=== PATIENT | male | born 1950 | race Caucasian/White ===

== ENCOUNTER → 2017-07-03 07:05 | Outpatient (CLI) | payer MEDICARE, OTHER, SELFPAY ==
[2017-07-03 07:13] LABS: Microscopic, Urine URINE MICROSCOPIC (MICROSCOPIC)
--- NOTE | 2017-07-03 07:34 | XR_ITS ---
XR chest 2V HISTORY: History of dysphasia and hoarseness, previous abnormal radiograph ITS.REASON: PRE-OP ORDERING PHYSICIAN: Leland Hagen PATIENT AGE: 67 years COMPARISON: 03/05/2012 FINDINGS: Unremarkable cardiovascular structures. There is evidence of old granulomatous disease. There is mild hyperinflation with prominent anterior clear space which may be seen with COPD similar to the previous exam. No lobar consolidation or collapse. There are degenerative changes in the thoracic spine with mild wedging of T7 and T8 slightly greater T7 and unchanged at T8 compared to the previous study. IMPRESSION: 1. No acute finding. 2. Hyperinflation consistent with COPD with old granulomatous disease. 3. Mild wedging of T7 and T8 slightly greater at the T7 region compared to the previous exam.
[2017-07-03 08:12] LABS: Basophils % 0.6 % (0.1-2.0); Eosinophils # 0.1 K/mm3 (0.0-0.4); Eosinophils % 1.9 % (0.1-12.0); Hematocrit 42.3 % (42.0-52.0); Hemoglobin 14.7 g/dL (14.1-18.0); Lymphocytes # 1.5 K/mm3 (0.7-4.5); Lymphocytes % 39.7 K/mm3 (10-50); Mean Corpuscular HGB Conc 34.7 g/dL (31.8-35.4); Mean Corpuscular Hemoglobin 30.7 pg (27.0-31.2); Mean Corpuscular Volume 88.6 fl (80-94); Mean Platelet Volume 7.4 fl (7.4-10.4); Monocytes # 0.4 K/mm3 (0.1-1.0); Monocytes % 9.4 % (1.7-9.3); Neutrophils # 1.9 K/mm3 (1.8-7.8); Neutrophils % 48.4 % (37.0-80.0); Platelet Count 224 K/mm3 (142-424); Red Blood Count 4.77 M/mm3 (4.60-6.20); Red Cell Distribution Width 12.7 % (11.5-17.5); White Blood Count 3.9 K/mm3 (4.8-10.8)
[2017-07-03 09:09] LABS: Appearance,Urine CLEAR (Clear); Bilirubin,Urine Negative (Negative); Blood, Urine TRACE-L (Negative); Color,Urine YELLOW (Yellow); Glucose,Urine (UA) Negative (Negative); Ketones,Urine Negative (Negative); Leukocyte Esterase,Urine Negative (Negative); Nitrate,Urine Negative (Negative); PH,Urine 6.5 (5.0-8.5); Protein,Urine Negative (Negative); Urobilinogen,Urine 0.2 EU/dl (0.2)
[2017-07-03 09:28] LABS: Alanine Aminotransferase 28 U/L (12-78); Albumin Level 3.6 gm/dL (3.4-5.0); Albumin/Globulin Ratio 1.1 (1.1-1.8); Alkaline Phosphatase 85 U/L (46-116); Anion Gap 11.1 mEq/L (5-15); Aspartate Amino Transferase 17 U/L (15-37); Blood Urea Nitrogen 13 mg/dL (7-18); Calcium 8.5 mg/dL (8.5-10.1); Carbon Dioxide 29 mmol/L (21.0-32.0); Chloride 105 mmol/L (98-107); Creatinine,Serum 0.73 mg/dL (0.70-1.30); Estimated Glomerular Filt Rate 107 ml/min (>60); GFR (African American) 129 ML/MIN (>60); Globulin 3.3 gm/dl (1.3-3.2); Glucose 89 mg/dL (74-106); Potassium 4.1 mmoL/L (3.5-5.1); Sodium 141 mmol/L (136-145); Total Protein,Serum 6.9 gm/dL (6.4-8.2)
[2017-07-03 09:51] LABS: Bacteria,Urine Trace /lpf; Squamous Epithelial Cell,Urine Occasional #/hpf (0-5)
== END ==
PROVIDERS: PCP Internal Medicine Adolescent Medicine; Visit Provider Orthopaedic Surgery
DX: Z01.818 Encounter for other preprocedural examination (principal); M16.12 Unilateral primary osteoarthritis, left hip
CPT/HCPCS: 36415; 71046; 80053; 81001; 85025; 86900; 86901; 87081; 93005

== ENCOUNTER 2017-08-23 08:00 | Outpatient (RCR) | payer MEDICARE, OTHER, SELFPAY | END 2017-08-23 10:30 | disposition home or self-care (01) | LOC: PT 08:00 | PROVIDERS: Family Provider Internal Medicine Adolescent Medicine; PCP Internal Medicine Adolescent Medicine; Visit Provider Orthopaedic Surgery | DX: Z96.642 Presence of left artificial hip joint (principal); M25.552 Pain in left hip | CPT/HCPCS: 97010; 97110; 97116; 97164 ==

== ENCOUNTER → 2018-02-12 09:12 | Outpatient (CLI) | payer MEDICARE, OTHER, SELFPAY ==
--- NOTE | 2018-02-12 09:14 | MR_ITS ---
MR lumbar spine wo/w con, MR 3-d myelogram/MRCP HISTORY: ITS.REASON: ACUTE RT SIDED BACK PAIN Rt sided LBP. pain worse when going from sitting to standing. X1YR. Prior back surgery X12yrs ago. ORDERING PHYSICIAN: Hossein Rodriguez MD PATIENT AGE: 67 years Comparison: X-RAY 07-02-2008 TECHNIQUE: Standard multiplanar multiecho sequences are performed without contrast. 3-D MIP and myelographic images are also rendered and reviewed FINDINGS: There is normal alignment. The spinal cord ends at the T12-L1 level. L1-L2: There is mild facet and ligamentum flavum hypertrophy with moderate bilateral foraminal narrowing. L2-L3: Mild facet and ligamentum flavum hypertrophy with moderate bilateral foraminal narrowing L3-L4: Mild concentric bulging disc along with facet and ligamentum flavum hypertrophy with moderate to severe bilateral foraminal narrowing L4-L5: Degenerative disc disease with Bulging disc. There is severe bilateral facet and ligamentum flavum hypertrophy with severe right-sided foraminal narrowing and moderate to severe left-sided foraminal narrowing. There is laminotomy defect on the right at L4-L5. There is transverse narrowing of the canal from the facet and ligamentum flavum hypertrophy at 12 mm. Isointense T1 and T2 signal is noted in the right lateral recess and foramen at L4-5 anteriorly. This doesn't demonstrate some low level enhancement and may be related to epidural fibrosis. L5-S1: Mild concentric bulging disc along with facet and ligamentum hypertrophy with moderate to severe bilateral foraminal narrowing from the facet and ligamentum flavum hypertrophy. Very minimal left paracentral disc protrusion. No extruded herniated disc are evident. Incidental note made of cortical scarring of the right kidney posteriorly IMPRESSION: 1. Multilevel facet and ligamentum flavum hypertrophy with varying degrees of lateral recess and foraminal narrowing ranging from moderate to severe. Please see above for detailed description at each level. 2. Degenerative disc disease at L4-L5 with Bulging disc. There is severe bilateral facet and ligamentum flavum hypertrophy with severe right-sided foraminal narrowing and moderate to severe left-sided foraminal narrowing. There is laminotomy defect on the right at L4-L5. There is transverse narrowing of the canal from the facet and ligamentum flavum hypertrophy at 12 mm. Isointense T1 and T2 signal is noted in the right lateral recess and foramen at L4-5 anteriorly. This doesn't demonstrate some low level enhancement and may be related to epidural fibrosis. 3. No extruded herniated disc evident.
== END ==
PROVIDERS: Family Provider Internal Medicine Adolescent Medicine; PCP Internal Medicine Adolescent Medicine; Visit Provider Internal Medicine Adolescent Medicine
DX: M54.41 Lumbago with sciatica, right side (principal)
CPT/HCPCS: 72158; 76376; A9576

== ENCOUNTER → 2019-03-14 11:08 | Outpatient (CLI) | payer MEDICARE, OTHER, SELFPAY ==
--- NOTE | 2019-03-14 11:16 | XR_ITS ---
PROCEDURE: XR HAND RT MIN 3V CLINICAL INDICATION: Right hand pain COMPARISON: No exams were available for comparison FINDINGS: No fracture or dislocation. No lytic or blastic change. There is normal mineralization. There are osteoarthritic changes at the PIP joint of the 2nd 3rd and 4th digit and the DIP joint of the 3rd 4th and 5th digit as well as interphalangeal joint of the thumb. Other findings:No acute fracture or dislocation. IMPRESSION: Osteoarthritis Dictated by: Mitchell Burns MD 03/14/2019 14:23 Electronically signed by Mitchell Burns MD in [place] 03/14/2019 14:23
--- NOTE | 2019-03-14 11:16 | XR_ITS ---
PROCEDURE: XR HAND LT MIN 3V CLINICAL INDICATION: DUPUYTRENS CONTRACTURE OF BOTH HANDS,REJI HAND PAIN COMPARISON: No exams were available for comparison FINDINGS: No fracture or dislocation. No lytic or blastic change. There is normal mineralization. The there are moderate to severe osteoarthritic changes of the 3rd metacarpal phalangeal joint. There is mild ulnar angulation of the metacarpals with mild osteoarthritis of the 1st metacarpal carpal joint and the scapho trapezium joint. Osteoarthritis involves the DIP of the 3rd 4th and 5th digits. Other findings:None. IMPRESSION: Osteoarthritic changes Dictated by: Mitchell Burns MD 03/14/2019 14:24 Electronically signed by Mitchell Burns MD in [place] 03/14/2019 14:24
== END ==
PROVIDERS: PCP Nurse Practitioner Family; Visit Provider Nurse Practitioner Family
DX: M72.0 Palmar fascial fibromatosis [Dupuytren] (principal); M79.642 Pain in left hand; M79.641 Pain in right hand
CPT/HCPCS: 73130

== ENCOUNTER 2021-01-30 09:49 | Emergency (ER) | payer MEDICARE, OTHER, SELFPAY ==
[2021-01-30 10:49] VITALS: BP 117/81; PULSE 84; RESP 18; TEMP 37.1; O2SAT 98; BMI 25.0
--- NOTE | 2021-01-30 11:00 | HMH.EDUTC ---
[facility] [place] Disposition Clinical Impression: Bronchitis Sinusitis Qualifiers: Sinusitis location: unspecified location Chronicity: unspecified Qualified Code(s): J32.9 - Chronic sinusitis, unspecified Disposition: Home, Self-Care Condition on Discharge: Good Instructions: Sinusitis, DI for Sinusitis Additional Instructions: ? Start antibiotic today. Be sure to complete entire prescription even if feeling better ? Monitor temp. Tylenol every 4 hours as needed and / or ibuprofen every 6 hours as needed ( As long as your primary care physician has told you that it ok to take both. For fever/aches/pains ER if no less than 101 despite Tylenol or Motrin ? Humidifier/vaporizer or hot steamy shower ? Mucinex for cough and congestion Be sure to drink lots of water. Follow up IMMEDIATELY for new or worsening of symptoms OR no noticeable improvement over the next 48-72 hours. 911 immediately for any life threatening symptoms such as chest pain or difficulty breathing You were tested for today for COVID19 your test result should be back in the next 24-48 hours, you may call to the [facility] to see if your test results are back in the next 48 hours [phone] [facility] hours are 9am-9pm You was given a handout with instructions for Self Quarantine and Self isolation for while you wait on test results and what to do if they are positive If you are positive the Health Dept will be contacting you also Make sure to take your Vitamins Vit. C Vit D and Zinc if you can take them Prescriptions: guaiFENesin [Mucinex 600mg tablet] 600 mg PO Q12HP PRN #20 tab PRN Reason: Cough Transmission Status: Received by [id number] Doxycycline Monohydrate [Doxycycline [place] 100mg Tab] 100 mg PO Q12 7 Days #14 tab Transmission Status: Received by [id number] Referrals: Hossein Rodriguez MD [Primary Care Provider] - As needed Time of Disposition: 11:18 Medical Decision Making - Nicanor Inquiry Pt receiving controlled substance: No Nicanor was queried for this patient: No Vital Signs: 01/30/21 10:49 01/30/21 11:23 Temperature 98.7 F 98.7 F Temperature Source Temporal Artery Scan Temporal Artery Scan Pulse Rate 84 Pulse Rate [Right Brachial] 84 Respiratory Rate 18 18 Blood Pressure 117/81 Blood Pressure [Right Arm] 117/81 Blood Pressure Mean [Right Arm] 93 Blood Pressure Source Automatic Cuff Blood Pressure Source [Right Arm] Automatic Cuff Blood Pressure Position Sitting Blood Pressure Position [Right Arm] Sitting 02 Sat by Pulse Oximetry 98 Oxygen Delivery Method Room Air Room Air Orders (Tests/Meds): ORDERS Category Date Time Status Covid-19 Nasal PCR ([facility]) Routine Lab 01/30/21 10:18 Received [facility] [place] HPI - General Stated complaint: cough, soa, runny nose, body aches, congestion Time Seen by Provider: 01/30/21 11:00 Mode of Arrival: Ambulatory Source of Information: Patient Description of Symptoms (Recalled from Triage Doc. by RN): productive cough, shortness of breath, aches and chills, congestion HEENT Symptoms (Recalled from RN notes): Yes Resp Symptoms (Recalled from RN notes): Yes Skin Symptoms (Recalled from RN notes): No MS Symptoms (Recalled from RN notes): No Functional Status (Recalled from RN notes): yes - History of Present Illness Provider Complaint: Patient states that he has been having cough, sinus congestion, and feeling SOA at times after coughing last week but that is better now States that in the mornings he is able to cough up a little mucous but then dont after he gets up and moving and having drainage down the back of his throat State that he was tested for COVID last week and it was negative but he is still feeling bad so he came back in wanting to get tested again for COVID - Related Data Previous Rx's Medication Instructions Recorded Doxycycline Monohydrate 100 mg PO Q12 7 Days #14 tab 01/30/21 [Doxycycline [place] 100mg Tab] guaiFENesin [Mucinex 600mg tablet] 600 mg PO Q12HP [place]
[2021-01-30 11:23] VITALS: BP 117/81; PULSE 84; RESP 18; TEMP 37.1; O2SAT 98
--- NOTE | 2021-01-31 14:07 | PC.NURSE ---
Notified pt of positive results
== END 2021-01-30 11:23 | disposition home or self-care (01) ==
PROVIDERS: Emergency Provider Nurse Practitioner; PCP Internal Medicine Adolescent Medicine
DX: U07.1 COVID-19 (principal); J20.9 Acute bronchitis, unspecified; J32.9 Chronic sinusitis, unspecified
CPT/HCPCS: G0463; 99202; C9803; U0003; U0005

== ENCOUNTER → 2021-04-28 12:20 | Outpatient (CLI) | payer MEDICARE, OTHER, SELFPAY ==
--- NOTE | 2021-04-28 12:25 | XR_ITS ---
PROCEDURE: XR RIBS BI MIN 4V W CXR1V CLINICAL INDICATION: STERNAL PAIN COMPARISON: DX CXR2V XR chest 2V from 07/03/2017 CR XR STERNUM MIN 2V from 04/28/2021 FINDINGS: Frontal view of the chest shows no acute finding. The there is an old left 5th and ninth rib fracture. No acute fracture identified. IMPRESSION: Old left 5th and 9th rib fractures. No acute finding. Dictated by: Mitchell Burns MD 04/28/2021 16:24 Mithcell Burns MD in [place] 04/28/2021 16:24
--- NOTE | 2021-04-28 12:25 | XR_ITS ---
PROCEDURE: XR STERNUM MIN 2V CLINICAL INDICATION: STERNAL PAIN COMPARISON: CR XR RIBS LT MIN 3V W CXR1V from 04/28/2021 FINDINGS: No obvious fracture or dislocation. No lytic or blastic change. If pain persist, CT may provide thorough evaluation for possible fracture. IMPRESSION: No acute finding of the sternum Dictated by: Mitchell Burns MD 04/28/2021 13:31 Micthell Burns MD in [place] 04/28/2021 13:31
== END ==
PROVIDERS: PCP Internal Medicine Adolescent Medicine; Visit Provider Nurse Practitioner Family
DX: R07.89 Other chest pain (principal)
CPT/HCPCS: 71101; 71111; 71120

== ENCOUNTER → 2021-05-13 14:01 | Outpatient (CLI) | payer MEDICARE, OTHER, SELFPAY ==
--- NOTE | 2021-05-13 14:03 | CT_ITS ---
PROCEDURE INFORMATION: Exam: CT Chest Without Contrast; Diagnostic Exam date and time: 05/13/2021 2:03 PM Age: 71 years old Clinical indication: Injury or trauma; Fall; Blunt trauma (contusions or hematomas); Injury date: 04/28/21; Additional info: Fall and contusion of sternum , subsequent encounter TECHNIQUE: Imaging protocol: Diagnostic computed tomography of the chest without contrast. Radiation optimization: All CT scans at this facility use at least one of these dose optimization techniques: automated exposure control; mA and/or kV adjustment per patient size (includes targeted exams where dose is matched to clinical indication); or iterative reconstruction. COMPARISON: CR XR RIBS BI MIN 4V W CXR1V 04/28/2021 12:28 PM FINDINGS: Lungs: Minimal bilateral atelectasis or scar. No acute consolidation, no mass. Pleural spaces: Unremarkable. No pneumothorax. No pleural effusion. Heart: No cardiomegaly. No pericardial effusion. Aorta: No aortic aneurysm. Lymph nodes: No significant adenopathy. Bones/joints: Healing nondisplaced upper sternal fracture (series 602, image 48). No significant parasternal hematoma. Soft tissues: Unremarkable. IMPRESSION: Healing nondisplaced sternal fracture.
== END ==
PROVIDERS: PCP Internal Medicine Adolescent Medicine; Visit Provider Internal Medicine Adolescent Medicine
DX: S20.219D Contusion of unspecified front wall of thorax, subsequent encounter (principal); W19.XXXD Unspecified fall, subsequent encounter
CPT/HCPCS: 71250

== ENCOUNTER 2023-10-23 11:52 | Emergency (ER) | payer MEDICARE, OTHER, SELFPAY ==
[2023-10-23 12:04] VITALS: BP 164/92; PULSE 70; RESP 18; O2SAT 97; BMI 25.0
[2023-10-23 12:12] VITALS: BP 164/92; PULSE 66; O2SAT 99
--- NOTE | 2023-10-23 12:12 | CT_ITS ---
FINAL REPORT CLINICAL HISTORY: fall, injury FINDINGS: Axial images of the head were obtained without contrast. Coronal reformatted images were also obtained. This study was performed with techniques to keep radiation doses as low as reasonably achievable (ALARA). Individualized dose reduction techniques using automated exposure control or adjustment of mA and/or kV according to the patient''s size were employed. There is generalized age-appropriate atrophy. Periventricular low-attenuation areas are seen consistent with mild chronic ischemic changes. There is no evidence of intracranial hemorrhage or mass. There is no evidence of acute infarct. There is no evidence of shift of the midline structures. No skull abnormality is seen on the bone window images. IMPRESSION: Atrophy and mild periventricular chronic ischemic changes. No acute intracranial abnormality identified. Reviewed, Interpreted and Dictated by Barney Calderon III, MD Transcribed by Alyx Harley Authenticated and [facility]
--- NOTE | 2023-10-23 12:12 | XR_ITS ---
FINAL REPORT CLINICAL HISTORY: fall, injury FINDINGS: Left shoulder Three views were obtained. There is a nondisplaced fracture of the infraspinatus portion of the scapula. There is mild AC joint degenerative change. IMPRESSION: Nondisplaced fracture as above. Reviewed, Interpreted and Dictated by Barney Calderon III, MD Transcribed by Alyx Harley Authenticated and [facility]
--- NOTE | 2023-10-23 12:12 | CT_ITS ---
FINAL REPORT TECHNIQUE: Axial images were obtained of the cervical spine by computed tomography. Coronal and sagittal reconstruction process performed. This study was performed with techniques to keep radiation doses as low as reasonably achievable (ALARA). Individualized dose reduction techniques using automated exposure control or adjustment of mA and/or kV according to the patient''s size were employed. CLINICAL HISTORY: fall, injury FINDINGS: There is no acute fracture. There is no subluxation. The soft tissues are unremarkable. There are moderate degenerative changes with multilevel neural foraminal narrowing. IMPRESSION: No acute fracture. Degenerative disc disease as above. Reviewed, Interpreted and Dictated by Barney Calderon III, MD Transcribed by Alyx Harley Authenticated and [facility]
--- NOTE | 2023-10-23 12:14 | ED_ITS ---
Discharge Plan Disposition Patient Disposition: Home, Self-Care Prescriptions Prescriptions: New hydrocodone-acetaminophen 5-325 mg tablet 1 tab PO Q6H PRN (Reason: pain) 3 Days Qty: 12 0RF No Action doxycycline monohydrate 100 MG tablet 100 mg PO Q12 7 Days Qty: 14 0RF guaifenesin 600 MG tablet extended release 12hr 600 mg PO Q12HP PRN (Reason: Cough) Qty: 20 0RF Referrals Follow up/Referrals: Neville Lewis DO [Staff Physician] - See instructions Hossein Rodriguez MD [Primary Care Provider] - See instructions Activity Restrictions/Add. Instructions Additional Instructions/Restrictions: Please follow-up with Dr. Lewis call make an appointment next available. Clinical Impressions Clinical Impression: Injury of left shoulder, Abrasion of face, Fracture of scapula Discharge ED Provider: Saman Wagner General Adult HPI General Chief complaint: Fall Stated complaint: AO 10/23/23 10:52, fell, inj left arm & shoulder Time Seen by Provider: 10/23/23 12:04 Mode of Arrival: Ambulatory Source of Information: Patient Limitations: No Limitations Description of Symptoms (Recalled from ER Triage Doc. by RN): Patient c/o left shoulder pain. pt reports he fell down about 6 concrete steps. History of Present Illness HPI narrative: Patient is a 73-year-old male presenting today with left shoulder pain primarily after falling down 6 concrete steps. States he was carrying a ladder had a mechanical fall no loss of consciousness. Did scrape his lip in the left anterior aspect of his left lower extremity but otherwise denies a significant head or cervical spine injury no chest abdomen pelvis or other long bone pain from historical standpoint denies being on anticoagulants or other antiplatelet agents. Related Data Previous Rx's Medication Instructions Recorded doxycycline monohydrate 100 mg 100 mg PO Q12 7 days #14 tabs 01/30/21 tablet guaifenesin 600 mg tablet, 600 mg PO Q12HP PRN Cough #20 tabs 01/30/21 extended release 12 hr hydrocodone 5 mg-acetaminophen 325 1 tab PO Q6H PRN pain 3 days #12 10/23/23 mg tablet tabs Allergies Allergy/AdvReac Type Severity Reaction Status Date / Time morphine Allergy [facility]otension [facility]30[facility]21 10[facility]: The information contained in this section may have been updated after the patient was seen, as this information can be updated by other users. Social History Smoking Status: Never smoker alcohol intake: never current occupational status: other Travel in the last 8 weeks: None ROS Obtained: Yes All systems reviewed & no additional complaints except as documented Physical Exam General General appearance: alert and in no apparent distress Head Head exam: other (There is a small superficial tissue avulsion on the left upper lateral aspect of his lip otherwise no significant injury to his face no Molina sign raccoon eyes or evidence of depressible fracture) Neck Neck exam: Absent tenderness (Normal range of motion) Respiratory Respiratory exam: Present normal lung sounds bilaterally; Absent respiratory distress Cardiovascular Cardiovascular exam: Present regular rate and normal rhythm Abdominal Exam Abdominal exam: Present soft; Absent distention Extremities Exam Extremities exam: Present other (All long bones palpated without any significant soft tissue deformities or tenderness however he has significant pain with range of motion in his left shoulder specifically with external rotation and internal rotation axillary nerve function otherwise normal) Neurological Exam Neurological exam: Present alert and oriented X3 Medical Decision Making Nicanor Inquiry Pt receiving controlled substance: No Vital Signs: 10/23/23 12:04 10/23/23 12:12 10/23/23 13:00 Pulse Rate 66 67 Pulse Rate [Right Brachial] 70 Respiratory Rate 18 Blood Pressure 164/92 H 153/89 H Blood Pressure [Right Arm] 164/92 H Blood Pressure Mean [Right Arm] 116 Blood Pressure Source [Right Arm] Automatic Cuff Blood Pressure Position [Right Arm] Sitting 02 Sat by Pulse Oximetry 97 99 98 Oxygen Delivery Method Room Air Room Air Orders (Tests/Meds): ED MEDICATIONS Discontinued Medications Generic Name Dose Route Start Last Admin Trade Name Ronalq PRN Reason Stop Dose Admin Tetanus/Reduced Diphtheria/Acell Pertussis 0.5 ml 10/23/23 12:12 10/23/23 12:20 Tet/Diphth/Pert-Adult 0.5ml Syringe IM 10/23/23 12:13 0.5 ml .ONCE ONE Administration ORDERS Category Date Time Status CT cervical spine wo con Stat Cat Scan 10/23/23 12:[address] head/brain wo con Stat Cat Scan 10/23/23 12:[address] shoulder LT wo con Stat Cat Scan 10/23/23 14:28 Ordered Shoulder XR left minimum 2 views [XR shoulder LT min 2V Exams 10/23/23 12:12 Completed ] Stat Medical Decision Narrative: 73-year-old with above history. Primarily here with a left shoulder injury given his age we will get a CT scan of his head and cervical spine he did obviously have some trauma to his face but seems minimal. GCS is 15 normal neurologic exam think is unlikely but we will proceed with CT imaging of his head and cervical spine. The remainder of his workup including chest abdomen pelvis other long bones are unremarkable from a historical and physical exam standpoint. Will get left shoulder x-rays. I suspect he has had some internal derangement most concerning for possible rotator cuff injury will reassess after these initial films and CTs are performed. Tdap has been updated as well. CT of the head and cervical spine performed I personally interpreted which showed no traumatic or intracranial or significant abnormalities this is consistent with radiology read. X-ray of the shoulder performed which I first interpreted shows a nondisplaced fracture of the infraspinatus portion of the scapula. I discussed the case with Dr. Lewis we will get a CT scan for further evaluation and for outpatient management. Patient was placed in a sling pain medicine prescribed remained neurovascular intact will follow-up with Dr. Lewis in outpatient fashion. Critical Care Critical Care Time Critical Care Time: No
[2023-10-23] MEDS: TET/DIPHTH/PERT-ADULT 0.5ML SYRINGE 0.5 ML IM (12:20)
[2023-10-23 13:00] VITALS: BP 153/89; PULSE 67; O2SAT 98
--- NOTE | 2023-10-23 13:14 | PC.NURSE ---
Rounded on pt. No needs voiced. Updated that we are waiting on scan results.
--- NOTE | 2023-10-23 14:28 | CT_ITS ---
FINAL REPORT TECHNIQUE: Axial images of the left shoulder was performed by computed tomography. Sagittal and coronal reformatted images were obtained and reviewed. This study was performed with techniques to keep radiation doses as low as reasonably achievable (ALARA). Individualized dose reduction techniques using automated exposure control or adjustment of mA and/or kV according to the patient's size were employed. CLINICAL HISTORY: follow up abnormal XR FINDINGS: There is lucency in the infraspinatus portion of the scapula consistent with a nondisplaced fracture. It is uncertain if this is acute or subacute. There are mild degenerative changes. There are 2 calcifications anterior to the humeral head of uncertain etiology, may represent loose bodies. IMPRESSION: Nondisplaced fracture as above. Loose bodies as above. Reviewed, Interpreted and Dictated by Barney Calderon III, MD Transcribed by Alyx Harley Authenticated and [facility]
--- NOTE | 2023-10-23 14:35 | PC.NURSE ---
PT TO CT
[2023-10-23 14:54] VITALS: BP 163/90; PULSE 70; RESP 18; TEMP 36.6; O2SAT 99
== END 2023-10-23 15:00 | disposition home or self-care (01) ==
PROVIDERS: Emergency Provider Student in an Organized Health Care Education/Training Program; PCP Internal Medicine Adolescent Medicine
DX: S42.112A Displaced fracture of body of scapula, left shoulder, initial encounter for closed fracture (principal); S49.92XA Unspecified injury of left shoulder and upper arm, initial encounter; S00.81XA Abrasion of other part of head, initial encounter; W10.8XXA Fall (on) (from) other stairs and steps, initial encounter; Z23 Encounter for immunization
CPT/HCPCS: 70450; 72125; 73030; 73200; 90471; 90715; 99285

== ENCOUNTER 2024-09-03 23:33 | Emergency (ER) | payer MEDICARE, OTHER, SELFPAY ==
[2024-09-03 23:46] VITALS: BP 125/86; PULSE 78; RESP 20; TEMP 36.8; O2SAT 94; BMI 25.0
--- OUTSIDE RECORDS SUMMARY | 2024-09-03 23:47 | XMS_ITS | Clinical Summary ---
Author Organization [facility] , [facility] Address [address] [place] [address] Phone Care Team Providers Care Map Compiler Name Role Phone Juan Jose Kenney Unavailable [phone] RUPESH ELLER MD Primary Care Provider [phone] Pamela MASSEY, Jaret Johnson Unavailable [phone] Reason for Visit and Chief Complaint The Chief Complaint is: Right ring finger pain Problems Includes: Problems addressed during this encounter and other active Problems All Visits Onset Date Resolved Date Provider Condition S tatus Pain in the Right Hand Only 10/15/2023 Jaret Santiago MD Active Last Documented On 4 1:42PM ; [facility], [facility] Soft Tissue Pain in the Right Ring Finger 03/19/2019 Jaret Santiago MD Active Last Documented On 9 12:59PM ; [facility] Plan of Treatment Today injected the right ring finger pretendinous cord with 0.58 mg of Xiaflex through 4 separate injections. He tolerated the injections well. Follow-up on Sunday for the manipulation portion of the procedure - Last Documented On 04/28/2019 10:07AM ; [facility], [facility] Instructions to patient Instructions for patient SEE PCP FOR BP Last Documented On 9 9:34AM ; [facility], [facility] Assessments Includes: Assessments from this encounter No Assessments Recorded Instructions Includes: Instructions from this encounter Instructions to patient Instructions for patient SEE PCP FOR BP Last Documented On 9 9:34AM ; [facility] Medical Equipment - Implanted Devices Includes: Current Devices No Medical Equipment Recorded Medications Includes: Medications discussed during this encounter and other current Medications No Medications Taken Medications Administered Includes: Administered Medications from this encounter No Administered Medications Recorded Vital Signs Includes: Vital Signs from this encounter Vital Name 04/28/2019 09:33A Blood Pressure Sitting (mmHg) 138/84 Pulse Rate-Sitting (bpm) 77 Height (in) 66 Weight (lb) 155 Body Mass Index (kg/m2) 25.0 Body Surface Area (m2) 1.8 Note: SLR Last Documented: On 04/28/2019 9:34AM ; [facility], [facility] Results Includes: Results discussed during this encounter No Results Recorded For Specified Dates History of Present Illness Includes: History of Present Illness from this encounter NI Jensen is a 69 year old male. - Allergy list reviewed - Problem list reviewed - Medication list reviewed with patient - Medication reconciliation performed Social History Description Last Updated Caffeine use Mountain Dew 04/28/2019 Last Documented On 9 10:07AM ; [facility], [facility] Exercising regularly 04/28/2019 Last Documented On 9 10:07AM ; [facility], [facility] No recent change in diet 04/28/2019 Last Documented On 9 10:07AM ; [facility], [facility] No tobacco use 04/28/2019 Last Documented On 9 10:07AM ; [facility], [facility] Not a current smoker 04/28/2019 Last Documented On 9 10:07AM ; [facility], [facility] Not using alcohol 04/28/2019 Last Documented On 9 10:07AM ; [facility], [facility] Not using drugs 04/28/2019 Last Documented On 9 10:07AM ; [facility], [facility] Smoking status : Former smoker 9 Last Documented On 9 10:07AM ; [facility], [facility] Procedures and Surgical History Includes: Procedures from this encounter Procedures Code Diagnosis Performing Provider Service L ocation Service Date Clinical summary provided to patient Last Documented On 9 9:34AM ; [facility], [facility] history of an X-ray was performed [facility] [address] Last Documented On 9 9:33AM ; [facility], [facility] Surgical History Last Updated History of appendectomy 04/28/2019 Last Documented On 9 10:07AM ; [facility], [facility] History of back surgery 04/28/2019 Last Documented On 9 10:07AM ; [facility], [facility] History of shoulder arthroplasty right 1 06/29/2018 Last Documented On 9 10:07AM ; [facility], [facility] History of total hip replacement left Last Documented On 9 10:07AM ; [facility], [facility] Medical History Includes: Medical History addressed during this encounter Description Last Updated Past medical and surgical history non-co ntributory 04/28/2019 Last Documented On 9 10:07AM ; [facility], [facility] A history of cancer skin, on face 2018 Last Documented On 9 10:07AM ; [facility], [facility] Arthritic joint problems 04/28/2019 Last Documented On 9 10:07AM ; [facility], [facility] Family History Includes: Family History addressed during this encounter Description Last Updated Family history of cancer 04/28/2019 Last Documented On 9 10:07AM ; [facility], [facility] Family history of diabetes mellitus 04/13 Last Documented On 9 10:07AM ; [facility], [facility] Review of Systems Includes: Review of Systems from this encounter Systemic: Not feeling tired (fatigue), no recent weight loss, and no recent weight gain. No edema. Head: No headache and no sinus pain. Eyes: No vision problems. Vision problems glasses/ contacts. No glaucomatous visual field defect. Otolaryngeal: No hearing loss and no tinnitus. No nasal symptoms. Cardiovascular: No chest pain or discomfort and no palpitations. Pulmonary: No daytime asthma symptoms, no cough, and no chronic cough. No wheezing. Gastrointestinal: No heartburn and no abdominal pain. Endocrine: No hot flashes and no muscle weakness. Hematologic: No easy bleeding and no tendency for easy bruising. Musculoskeletal: No lower back pain. No soft tissue swelling. Pain localized to one or more joints. Neurological: No dizziness, no convulsions, and no numbness. Psychological: No anxiety, no emotional lability, no depression, and no insomnia. Not crying for no reason. Skin: No dry skin, no rash, and no ulcers. Allergic and Immunologic: Complaint of seasonal allergic reaction. NO CHANGES IN ROS//SLR Mental Status Includes: Mental Status from this encounter Description No anxiety Functional Status Includes: Functional Status from this encounter No Functional Status Recorded Physical Exam Includes: Physical Exam from this encounter Allergies Includes: Active Allergies Substance Type Reaction Onset Date Resolved Date Statu s Morphine Derivatives Allergy 03/19/2019 Active Last Documented On 4 1:42PM ; [facility], [facility] Encounters Encounter Provider Location Date Check-In Time Check- Out Time Diagnosis Xiaflex Jaret Satniago MD [facility] 9 9:20AM 10:07AM Insurance Includes: Active Insurance Policies Plan Name Member ID Group # Subscriber Relationship Effect addison Dates 1 - [employer]ILRO[employer] MEDICARE [place] [id number] Cliff Jensen Self 2012 - Unknown 2 - [employer] [id number] Cliff Jensen Self 05/14/2018 - Unknown Clinical Notes Includes: Clinical Notes from this encounter No Clinical Notes Recorded
--- OUTSIDE RECORDS SUMMARY | 2024-09-03 23:47 | XMS_ITS | Clinical Summary ---
Author Organization [facility] , [facility] Address [address] [place] [address] Phone Care Team Providers Care Water Vessel Captain Name Role Phone Juan Jose Kenney Unavailable [phone] RUPESH ELLER MD Primary Care Provider [phone] Pamela MASSEY, Jaret Johnson Unavailable [phone] Reason for Visit and Chief Complaint The Chief Complaint is: Right ring finger pain Problems Includes: Problems addressed during this encounter and other active Problems All Visits Onset Date Resolved Date Provider Condition S tatus Pain in the Right Hand Only 10/15/2023 Jaret Santiago MD Active Last Documented On 4 1:42PM ; [facility], [facility] Soft Tissue Pain in the Right Ring Finger 03/19/2019 Jaret Santiago MD Active Last Documented On 9 12:59PM ; [facility], [facility] Plan of Treatment Today performed manipulation portion of the procedure after first numbing his fingerwith 1% lidocaine and 0.5% Marcaine. 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 No skin tear.. - Last Documented On 05/12/2019 8:42AM ; [facility], [facility] Refer to physical therapy first range of motion and splinting. Follow up in 1 month - Last Documented On 05/12/2019 8:42AM ; [facility], [facility] Instructions to patient Instructions for patient see PCP for BP Last Documented On 9 9:17AM ; [facility], [facility] Assessments Includes: Assessments from this encounter No Assessments Recorded Instructions Includes: Instructions from this encounter Instructions to patient Instructions for patient see PCP for BP Last Documented On 9 9:17AM ; [facility], [facility] Medical Equipment - Implanted Devices Includes: Current Devices No Medical Equipment Recorded Medications Includes: Medications discussed during this encounter and other current Medications No Medications Taken Medications Administered Includes: Administered Medications from this encounter No Administered Medications Recorded Vital Signs Includes: Vital Signs from this encounter Vital Name 04/30/2019 09:16A Blood Pressure Sitting (mmHg) 178/97 Pulse Rate-Sitting (bpm) 65 Height (in) 66 Weight (lb) 155 Body Mass Index (kg/m2) 25.0 Body Surface Area (m2) 1.8 Note: SNM Last Documented: On 04/30/2019 9:17AM ; [facility], [facility] Results Includes: Results discussed during this encounter No Results Recorded For Specified Dates History of Present Illness Includes: History of Present Illness from this encounter NI Jensen is a 69 year old male. - Allergy list reviewed - Problem list reviewed - Medication list reviewed with patient - Medication reconciliation performed Social History Description Last Updated Caffeine use Mountain Dew 04/30/2019 Last Documented On 9 8:42AM ; [facility], [facility] Exercising regularly 04/30/2019 Last Documented On 9 8:42AM ; [facility], [facility] No recent change in diet 04/30/2019 Last Documented On 9 8:42AM ; [facility], [facility] No tobacco use 04/30/2019 Last Documented On 9 8:42AM ; [facility], [facility] Not a current smoker 04/30/2019 Last Documented On 9 8:42AM ; [facility], [facility] Not using alcohol 04/30/2019 Last Documented On 9 8:42AM ; [facility], [facility] Not using drugs 04/30/2019 Last Documented On 9 8:42AM ; [facility], [facility] Smoking status : Former smoker 9 Last Documented On 9 8:42AM ; [facility], [facility] Procedures and Surgical History Includes: Procedures from this encounter Procedures Code Diagnosis Performing Provider Service L ocation Service Date history of an X-ray was performed [facility] [id number] Last Documented On 9 9:16AM ; [facility], [facility] Surgical History Last Updated History of appendectomy 04/30/2019 Last Documented On 9 8:42AM ; [facility], [facility] History of back surgery 04/30/2019 Last Documented On 9 8:42AM ; [facility], [facility] History of shoulder arthroplasty right 1 07/01/2018 Last Documented On 9 8:42AM ; [facility], [facility] History of total hip replacement left Last Documented On 9 8:42AM ; [facility], [facility] Medical History Includes: Medical History addressed during this encounter Description Last Updated Past medical and surgical history non-co ntributory 04/30/2019 Last Documented On 9 8:42AM ; [facility], [facility] A history of cancer skin, on face 2018 Last Documented On 9 8:42AM ; [facility], [facility] Arthritic joint problems 04/30/2019 Last Documented On 9 8:42AM ; [facility], [facility] Family History Includes: Family History addressed during this encounter Description Last Updated Family history of cancer 04/30/2019 Last Documented On 9 8:42AM ; [facility], [facility] Family history of diabetes mellitus 04/13 Last Documented On 9 8:42AM ; [facility], [facility] Review of Systems Includes: Review [...] of seasonal allergic reaction. NO CHANGES IN ROS 04/30/19 //SNM Mental Status Includes: Mental Status from this encounter Description No anxiety Functional Status Includes: Functional Status from this encounter No Functional Status Recorded Physical Exam Includes: Physical Exam from this encounter Allergies Includes: Active Allergies Substance Type Reaction Onset Date Resolved Date Statu s Morphine Derivatives Allergy 03/19/2019 Active Last Documented On 4 1:42PM ; [facility], [facility] Encounters Encounter Provider Location Date Check-In Time Check- Out Time Diagnosis Xiaflex Jaret Santiago MD [facility] 9 9:06AM 9:57AM Insurance Includes: Active Insurance Policies Plan Name Member ID Group # Subscriber Relationship Effect addison Dates 1 - RAILROAD MEDICARE [facility] [id number] Cliff Jensen Self 2012 - Unknown 2 - [employer] [id number] Cliff Jensen Self 05/14/2018 - Unknown Clinical Notes Includes: Clinical Notes from this encounter No Clinical Notes Recorded
--- OUTSIDE RECORDS SUMMARY | 2024-09-03 23:47 | XMS_ITS ---
Care Plan - [facility], [facility] Created on: September 03, 2024 Cliff Jensen : 1950 Sex: Male Author Organization [facility] , [facility] Address [address] [place] [address] Phone Care Team Providers Care Computer Instructor Name Role Phone Juan Jose Kenney Unavailable [phone] RUPESH ELLER MD Primary Care Provider [phone] Pamela MASSEY, Jaret Johnson Unavailable [phone]
--- OUTSIDE RECORDS SUMMARY | 2024-09-03 23:47 | XMS_ITS ---
Author Organization [facility] Address [address] [place] [address] Phone Care Team Providers Care Scale Balancer Name Role Phone Juan Jose Kenney Unavailable [phone] RUPESH ELLER MD Primary Care Provider [phone] Jaret Santiago MD Unavailable [phone] Problems Includes: Active, inactive, and resolved Problems All Visits Onset Date Resolved Date Provider Condition S tatus Pain in the Right Hand Only 10/15/2023 Jaret Santiago MD Active Last Documented On 4 1:42PM ; BH[facility]YA TEMPLETON Soft Tissue Pain in the Right Ring Finger 03/19/2019 Jaret Santiago MD Active Last Documented On 9 12:59PM ; BHAVYA TEMPLETON Plan of Treatment Findings Encounter Date Patient screened for future fall risk: documentation of any fall with injury in past year Physician Specified with Jaret Santiago MD 10/15/2023 Last Documented On 4 11:06PM ; [facility], [facility] Instructions to patient Lose weight Last Documented On 4 2:38PM ; [facility], [facility] Instructions for patient SEE PCP FOR BP Last Documented On 0 12:53PM ; BHAVYA TEMPLETON Instructions for patient see PCP for BP Last Documented On 0 8:39AM ; [facility], BHAVYA Instructions for patient see PCP for BP Last Documented On 9 9:17AM ; [facility] Instructions for patient SEE PCP FOR BP Last Documented On 9 9:34AM ; [facility] Assessments Includes: Assessments for all patient encounters Findings Encounter Date Overweight Physician Specified with Jaret Santiago MD 10/15/2023 Last Documented On 4 11:06PM ; BHAVYA TEMPLETON Instructions Includes: Instructions for all patient encounters Instructions to patient Lose weight Last Documented On 4 2:38PM ; BHAVYA TEMPLETON Instructions for patient SEE PCP FOR BP Last Documented On 0 12:53PM ; BHAVYA TEMPLETON Instructions for patient see PCP for BP Last Documented On 0 8:39AM ; BHAVYA TEMPLETON Instructions for patient see PCP for BP Last Documented On 9 9:17AM ; BHAVYA TEMPLETON Instructions for patient SEE PCP FOR BP Last Documented On 9 9:34AM ; BHAVYA TEMPLETON Medical Equipment - Implanted Devices Includes: Current and historical Devices No Medical Equipment Recorded Medications Includes: Current and historical Medications Past Medications on file Paxlovid (300/100) 20 x 150 MG & 10 x 100MG Oral Tablet Therapy Pack 03/17/2023 - 10/15/2023 Provider: Lizbeth hidalgo APRN Diagnosis: Last Documented On 4 2:36PM By Indiana Heath ; BHAVYA TEMPLETON Medications Administered Includes: Administered Medications in patient's chart No Administered Medications Recorded Vital Signs Includes: Vital Signs from 09/04/2023 through 09/03/2024 Vital Name 10/15/2023 02:36P Height (in) 65 Weight (lb) 155 Body Mass Index 25.8 Body Surface Area 1.8 Note: [facility] Last Documented: On 10/15/2023 2:37PM ; BHAVYA TEMPLETON Results Includes: Results from 09/04/2023 through 09/03/2024 No Results Recorded For Specified Dates History of Present Illness History of Present Illness not supported for this document type No History of Present Illness Recorded Social History Description Last Updated No recent change in diet 10/15/2023 Last Documented On 4 11:06PM ; BHAVYA TEMPLETON Not a current smoker. 10/15/2023 Last Documented On 4 11:06PM ; BHAVYA TEMPLETON Caffeine use Mountain Dew 07/30/2019 Last Documented On 0 1:18PM ; [facility], [facility] Exercising regularly 07/30/2019 Last Documented On 0 1:18PM ; [facility], [facility] No recent change in diet 07/30/2019 Last Documented On 0 1:18PM ; [facility], [facility] No tobacco use 07/30/2019 Last Documented On 0 1:18PM ; [facility] Not a current smoker 07/30/2019 Last Documented On 0 1:18PM ; [facility], [facility] Not using alcohol 07/30/2019 Last Documented On 0 1:18PM ; [facility] Not using drugs 07/30/2019 Last Documented On 0 1:18PM ; [facility], [facility] Smoking status : Former smoker 0 Last Documented On 0 1:18PM ; [facility] Procedures and Surgical History Includes: Procedures from 09/04/2023 through 09/03/2024 Procedures Code Diagnosis Performing Provider Service Location Service Date X-RAY EXAM OF HAND 2 VIEWS (RIGHT) 14441 Trigger finger, right middle finger Jaret Santiago MD [facility] 10/15/2023 Last Documented On 4 12:28PM ; [facility], [facility] Triamcinolone/Kenalog, 10mg per cc [id number] Trigger finger, right middle finger Jaret Santiago MD [facility] 10/15/2023 Last Documented On 4 12:28PM ; [facility], [facility] INJ TENDON SHEATH/LIGAMENT (RIGHT) 22363 Trigger finger, right middle finger Jaret Santiago MD [facility] 10/15/2023 Last Documented On 4 12:28PM ; [facility] Surgical History Last Updated History of appendectomy 07/30/2019 Last Documented On 0 1:18PM ; [facility] History of back surgery 07/30/2019 Last Documented On 0 1:18PM ; [facility], [facility] History of shoulder arthroplasty right 0 07/30/2019 Last Documented On 0 1:18PM ; [facility] History of total hip replacement left Last Documented On 0 1:18PM ; [facility] Medical History Includes: Medical History in patient's chart Description Last Updated Past medical and surgical history non-co ntributory 07/30/2019 Last Documented On 0 1:18PM ; [facility] A history of cancer skin, on face 2019 Last Documented On 0 1:18PM ; [facility] Arthritic joint problems 07/30/2019 Last Documented On 0 1:18PM ; [facility] Family History Includes: Family History in patient's chart Description Last Updated Family history of cancer 07/30/2019 Last Documented On 0 1:18PM ; [facility] Family history of diabetes mellitus 07/12 Last Documented On 0 1:18PM ; [facility] Review of Systems Review of Systems not supported for this document type No Review of Systems Recorded Mental Status Description No anxiety Functional Status No Functional Status Recorded Physical Exam Physical Exam not supported for this document type No Physical Exam Recorded Allergies Includes: Active, inactive, and resolved Allergies Substance Type Reaction Onset Date Resolved Date Statu s Morphine Derivatives Allergy 03/19/2019 Active Last Documented On 4 1:42PM ; [facility] Encounters Includes: Encounters from 09/04/2023 through 09/03/2024 Encounter Provider Location Date Check-In Time Check-Out Time Diagnosis Physician Specified Jaret Santiago MD [facility] 10/15/19 24 1:39PM 2:31PM Overweight Insurance Includes: Active Insurance Policies Plan Name Member ID Group # Subscriber Relationship Effect addison Dates 1 - [employer] [place] [id number] Cliff Jensen Self 2012 - Unknown 2 - [employer] [place] [id number] lCiff Jensen Self 05/14/2018 - Unknown Clinical Notes Includes: Signed Clinical Notes starting from 04/27/2022 * Progress note Date Encounter Last Documented by 10/15/2023 Physician Specified Ajith marroquin on 10/16/2023; 11:06 PM, Jaret Santiago MD; [facility] Active Problems & Conditions - Pain in the Right Hand Only - Soft Tissue Pain in the Right Ring Finger Chief Complaint The Chief Complaint is: R hand pain. Referred Here Referred by pcp. History of Present Illness Cliff Jensen is a 73 year old male. - Symptoms locking. - Allergy list reviewed - Problem list reviewed - Medication list reviewed - Previous history of new onset pain Injury is not work related or an automotive accident - Pain is constant (100% of the time) - - Review of medications documented - No previous treatment. Patient is a 73 year old male that is here today with complaints of RLF pain. He states he has noticed for two days stiffness in the digit. He states he noticed pain and stiffness after using a chainsaw. He states he is unable to straighten the digit actively but could straighten it prior to using the chainsaw. He denies any previous treatment. Current Medication - None Past Medical/Surgical History Reported: Medical: Arthritic joint problems and cancer skin, on face. Past medical and surgical history non-contributory. Surgical: - Appendectomy - Back surgery - Shoulder arthroplasty right - Total hip replacement left Social History Not a current smoker. Current diet: No recent change in diet. No recent change in diet. Caffeine use: Caffeine use Mountain Dew. Tobacco use: No tobacco use, not a current smoker, and smoking status: Former smoker. Alcohol: Not using alcohol. Drug Use: Not using drugs. Habits: Exercising regularly. Allergies - Morphine Derivatives Family History Cancer Diabetes mellitus Review Of Systems Systemic: Not feeling tired, no recent weight loss, and no recent weight gain. Head: No headache and no sinus pain. Eyes: No vision problems, no Cataracts, no Glasses/Contacts, and no Glaucoma. Otolaryngeal: No hearing loss and no tinnitus. Cardiovascular: No chest pain or discomfort, no palpitations, no Hypertension, and no High Cholesterol. Pulmonary: No daytime asthma symptoms and no chronic cough. No wheezing. Gastrointestinal: No heartburn and no abdominal pain. No Indigestion, no Peptic Ulcer, no GI Stomach Bleed, no Ulcers, and no Acid Reflux. Endocrine: No hot flashes, no muscle weakness, no Diabetes, no Hypothyroid, and no Hyperthyroid. Hematologic: No easy bleeding, no tendency for easy bruising, and no Anemia. Musculoskeletal: No Arthritis and no lower back pain. No soft tissue swelling and no localized joint pain. Neurological: No dizziness, no convulsions, and no numbness. Psychological: No anxiety, no emotional lability, no depression, and no insomnia. Not crying for no reason. Skin: No dry skin. No Ulcers, no Scars, and no rash. Allergic and Immunologic: No complaint of seasonal allergic reaction. rev 10/15/23 The patient is awake alert oriented in time place and person. Has normal mood and affect. Is neatly dressed. Has normal gait and station. Pupils are equal and react to light normally. Eyes move normally. Mucous membranes are moist. The patient has no trouble with speech. Normal circulation. Normal sensation. No thenar or intrinsic atrophy. Normal strength. Patient is very tender over the RLF A1 dana with triggering of the A1 dana. Tender RLF MPJ. 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 Balance/gait along with postural blood pressure, vision and home fall hazards have been assessed. Medications have been reviewed, and recommendations made with regard to contributing factors for future falls. Plan of care: Consideration of vitamin D supplementation along with balance and strength training with consideration for formal physical therapy has been discussed with the patient. 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 We discussed the course of treatment for MPJ arthritis including trying a steroid injection into the joint today to help alleviate her pain versus MPJ replacement. Patient states he would like an injection into the RLF MPJ today as he is not interested in surgery. After consent had been obtained the RLF MPJ was injected with 0.5 cc of Kenalog- 10 and 0.5 cc of 1% lidocaine. The patient tolerated the injection well. I explained to the patient that the diagnosis is triggering of the RLF. We discussed the course of treatment including a steroid injection versus surgery. At this time the patient would like to try an injection today as they do not elect to continue with surgery at this time. We will inject the patient and see them back in 1 week for recheck. After consent had been obtained the RLF A1 dana was injected with 0.5 cc of Kenalog-10 and 0.5 cc of 1% lidocaine. The patient tolerated the injection well. Care Team - Juan Jose Kenney Notes transcribed by Jadyn Scott This dictation was done with voice recognition software and may contain errors or omissions.
--- OUTSIDE RECORDS SUMMARY | 2024-09-03 23:47 | XMS_ITS | Clinical Summary ---
Author Organization [facility] Address [address] [place] [address] Phone Care Team Providers [employer] Supervisor Name Role Phone Juan Jose Kenney Unavailable [phone] RUPESH ELLER MD Primary Care Provider [phone] Jaret Santiago MD Unavailable [phone] Reason for Visit and Chief Complaint Follow Up Problems Includes: Problems addressed during this encounter and other active Problems All Visits Onset Date Resolved Date Provider Condition S tatus Pain in the Right Hand Only 10/15/2023 Jaret Santiago MD Active Last Documented On 4 1:42PM ; [facility] Soft Tissue Pain in the Right Ring Finger 03/19/2019 Jaret Santiago MD Active Last Documented On 9 12:59PM ; [facility] Plan of Treatment After consent had been obtained the right long finger PIP joint was injected with 0.5 cc of Kenalog-10 and 0.5 cc of 1% lidocaine. The patient tolerated the injection well. Follow-up as needed - Last Documented On 07/30/2019 1:18PM ; [facility], [facility] Instructions to patient Instructions for patient SEE PCP FOR BP Last Documented On 0 12:53PM ; [facility], [facility] Assessments Includes: Assessments from this encounter No Assessments Recorded Instructions Includes: Instructions from this encounter Instructions to patient Instructions for patient SEE PCP FOR BP Last Documented On 0 12:53PM ; [facility] Medical Equipment - Implanted Devices Includes: Current Devices No Medical Equipment Recorded Medications Includes: Medications discussed during this encounter and other current Medications No Medications Taken Medications Administered Includes: Administered Medications from this encounter No Administered Medications Recorded Vital Signs Includes: Vital Signs from this encounter Vital Name 07/30/2019 12:52P Blood Pressure Sitting (mmHg) 156/89 Pulse Rate-Sitting (bpm) 69 Height (in) 66 Weight (lb) 155 Body Mass Index (kg/m2) 25.0 Body Surface Area (m2) 1.8 Note: SLR Last Documented: On 07/30/2019 12:53P M ; [facility] Results Includes: Results discussed during this encounter No Results Recorded For Specified Dates History of Present Illness Includes: History of Present Illness from this encounter NI Jensen is a 69 year old male. - Allergy list reviewed - Problem list reviewed - Medication list reviewed with patient - Medication reconciliation performed Social History Description Last Updated Caffeine use Mountain Dew 07/30/2019 Last Documented On 0 1:18PM ; [facility], [facility] Exercising regularly 07/30/2019 Last Documented On 0 1:18PM ; [facility], [facility] No recent change in diet 07/30/2019 Last Documented On 0 1:18PM ; [facility], [facility] No tobacco use 07/30/2019 Last Documented On 0 1:18PM ; [facility], [facility] Not a current smoker 07/30/2019 Last Documented On 0 1:18PM ; [facility] Not using alcohol 07/30/2019 Last Documented On 0 1:18PM ; [facility] Not using drugs 07/30/2019 Last Documented On 0 1:18PM ; [facility] Smoking status : Former smoker 0 Last Documented On 0 1:18PM ; [facility], [facility] Procedures and Surgical History Includes: Procedures from this encounter Procedures Code Diagnosis Performing Provider Service L ocation Service Date Clinical summary provided to patient Last Documented On 0 12:53PM ; [facility] Surgical History Last Updated History of appendectomy 07/30/2019 Last Documented On 0 1:18PM ; [facility] History of back surgery 07/30/2019 Last Documented On 0 1:18PM ; [facility] History of shoulder arthroplasty right 0 07/30/2019 Last Documented On 0 1:18PM ; [facility], [facility] History of total hip replacement left Last Documented On 0 1:18PM ; [facility], [facility] Medical History Includes: Medical History addressed during this encounter Description Last Updated Past medical and surgical history non-co ntributory 07/30/2019 Last Documented On 0 1:18PM ; [facility], [facility] A history of cancer skin, on face 2019 Last Documented On 0 1:18PM ; [facility], [facility] Arthritic joint problems 07/30/2019 Last Documented On 0 1:18PM ; [facility], [facility] Family History Includes: Family History addressed during this encounter Description Last Updated Family history of cancer 07/30/2019 Last Documented On 0 1:18PM ; [facility], [facility] Family history of diabetes mellitus 07/12 Last Documented On 0 1:18PM ; [facility], [facility] Review of Systems Includes: Review of Systems [...] seasonal allergic reaction. NO CHANGES IN ROS 07/30/2019 SLR Mental Status Includes: Mental Status from this encounter Description No anxiety Functional Status Includes: Functional Status from this encounter No Functional Status Recorded Physical Exam Includes: Physical Exam from this encounter Allergies Includes: Active Allergies Substance Type Reaction Onset Date Resolved Date Statu s Morphine Derivatives Allergy 03/19/2019 Active Last Documented On 4 1:42PM ; [facility], [facility] Encounters Encounter Provider Location Date Check-In Time Check- Out Time Diagnosis Follow Up Jaret Santiago MD [facility] 0 12:24PM 1:16PM Insurance Includes: Active Insurance Policies Plan Name Member ID Group # Subscriber Relationship Effect addison Dates 1 - [employer] [facility] [id number] Cliff Jensen Self 2012 - Unknown 2 - [employer] [place] [id number] Cliff Jensen Self 05/14/2018 - Unknown Clinical Notes Includes: Clinical Notes from this encounter No Clinical Notes Recorded
--- OUTSIDE RECORDS SUMMARY | 2024-09-03 23:47 | XMS_ITS | Clinical Summary ---
Author Organization [facility] Address [address] [place] [address] Phone Care Team Providers Care Syrup Filterer Name Role Phone Juan Jose Kenney Unavailable [phone] RUPESH ELLER MD Primary Care Provider [phone] Pamela MASSEY, Jaret Johnson Unavailable [phone] Reason for Visit and Chief Complaint The Chief Complaint is: RRF pain Problems Includes: Problems addressed during this encounter and other active Problems All Visits Onset Date Resolved Date Provider Condition S tatus Pain in the Right Hand Only 10/15/2023 Jaret Santaigo MD Active Last Documented On 4 1:42PM ; [facility] Soft Tissue Pain in the Right Ring Finger 03/19/2019 Jaret Santiago MD Active Last Documented On 9 12:59PM ; [facility] Plan of Treatment Follow-up as needed - Last Documented On 05/28/2019 9:11AM ; [facility] Instructions to patient Instructions for patient see PCP for BP Last Documented On 0 8:39AM ; [facility] Assessments Includes: Assessments from this encounter No Assessments Recorded Instructions Includes: Instructions from this encounter Instructions to patient Instructions for patient see PCP for BP Last Documented On 0 8:39AM ; [facility] Medical Equipment - Implanted Devices Includes: Current Devices No Medical Equipment Recorded Medications Includes: Medications discussed during this encounter and other current Medications No Medications Taken Medications Administered Includes: Administered Medications from this encounter No Administered Medications Recorded Vital Signs Includes: Vital Signs from this encounter Vital Name 05/28/2019 08:39A Blood Pressure Sitting (mmHg) 149/94 Pulse Rate-Sitting (bpm) 72 Height (in) 66 Weight (lb) 155 Body Mass Index (kg/m2) 25.0 Body Surface Area (m2) 1.8 Note: SNM Last Documented: On 05/28/2019 8:39AM ; [facility], [facility] Results Includes: Results discussed during this encounter No Results Recorded For Specified Dates History of Present Illness Includes: History of Present Illness from this encounter HPI Cliff Jensen is a 69 year old male. - Allergy list reviewed - Problem list reviewed - Medication list reviewed with patient - Medication reconciliation performed Social History Description Last Updated Caffeine use Mountain Dew 05/28/2019 Last Documented On 0 9:11AM ; [facility], [facility] Exercising regularly 05/28/2019 Last Documented On 0 9:11AM ; [facility], [facility] No recent change in diet 05/28/2019 Last Documented On 0 9:11AM ; [facility], [facility] No tobacco use 05/28/2019 Last Documented On 0 9:11AM ; [facility], [facility] Not a current smoker 05/28/2019 Last Documented On 0 9:11AM ; [facility], [facility] Not using alcohol 05/28/2019 Last Documented On 0 9:11AM ; [facility], [facility] Not using drugs 05/28/2019 Last Documented On 0 9:11AM ; [facility], [facility] Smoking status : Former smoker 0 Last Documented On 0 9:11AM ; [facility], [facility] Procedures and Surgical History Surgical History Last Updated History of appendectomy 05/28/2019 Last Documented On 0 9:11AM ; [facility], [facility] History of back surgery 05/28/2019 Last Documented On 0 9:11AM ; [facility], [facility] History of shoulder arthroplasty right 0 05/28/2019 Last Documented On 0 9:11AM ; [facility], [facility] History of total hip replacement left Last Documented On 0 9:11AM ; [facility], [facility] Medical History Includes: Medical History addressed during this encounter Description Last Updated Past medical and surgical history non-co ntributory 05/28/2019 Last Documented On 0 9:11AM ; [facility] A history of cancer skin, on face 2019 Last Documented On 0 9:11AM ; [facility] Arthritic joint problems 05/28/2019 Last Documented On 0 9:11AM ; [facility] Family History Includes: Family History addressed during this encounter Description Last Updated Family history of cancer 05/28/2019 Last Documented On 0 9:11AM ; [facility] Family history of diabetes mellitus 05/14 Last Documented On 0 9:11AM ; [facility] Review of Systems Includes: Review of [...] seasonal allergic reaction. NO CHANGES IN ROS 05/28/2019 //[facility] Mental Status Includes: Mental Status from this encounter Description No anxiety Functional Status Includes: Functional Status from this encounter No Functional Status Recorded Physical Exam Includes: Physical Exam from this encounter Allergies Includes: Active Allergies Substance Type Reaction Onset Date Resolved Date Statu s Morphine Derivatives Allergy 03/19/2019 Active Last Documented On 4 1:42PM ; [facility] Encounters Encounter Provider Location Date Check-In Time Check- Out Time Diagnosis Follow Up Jaret Santiago MD [facility] 0 8:35AM 9:10AM Insurance Includes: Active Insurance Policies Plan Name Member ID Group # Subscriber Relationship Effect addison Dates 1 - [employer] [place] [id number] Cliff Jensen Self 2012 - Unknown 2 - [employer] [id number] Cliff Jensen Self 05/14/2018 - Unknown Clinical Notes Includes: Clinical Notes from this encounter No Clinical Notes Recorded
--- OUTSIDE RECORDS SUMMARY | 2024-09-03 23:47 | XMS_ITS | Clinical Summary ---
Author Organization [facility] , [facility] Address [address] [place] [address] Phone Care Team Providers Care Japanese Interpreter Name Role Phone Juan Jose Kenney Unavailable [phone] RUPESH ELLER MD Primary Care Provider [phone] Pamela MASSEY, Jaret Johnson Unavailable [phone] Reason for Visit and Chief Complaint The Chief Complaint is: R hand pain Problems Includes: Problems addressed during this encounter and other active Problems Current Visit Onset Date Resolved Date Provider Conditio n Status Pain in the Right Hand Only 10/15/2023 Jaret Santiago MD Active Last Documented On 4 1:42PM ; [facility] Past Visits Onset Date Resolved Date Provider Condition Status Soft Tissue Pain in the Right Ring Finger 03/19/2019 Jaret Santiago MD Activ e Last Documented On 9 12:59PM ; [facility], [facility] Plan of Treatment - Patient screened for future fall risk: documentation of any fall with injury in past year - Last Documented On 10/16/2023 11:06PM ; [facility], [facility] Fall Risk Assessment: This patient has been [...] therapy has been discussed with the patient. - Last Documented On 10/16/2023 11:06PM ; [facility], [facility] After reviewing the xrays with the patient, [...] lidocaine. The patient tolerated the injection well. - Last Documented On 10/16/2023 11:06PM ; [facility], [facility] Instructions to patient Lose weight Last Documented On 2:38PM ; [facility], [facility] Assessments Includes: Assessments from this encounter Findings - Overweight - Last Documented On 10/16/2023 11:06PM ; [facility], [facility] Instructions Includes: Instructions from this encounter Instructions to patient Lose weight Last Documented On 2:38PM ; [facility], [facility] Medical Equipment - Implanted Devices Includes: Current Devices No Medical Equipment Recorded Medications Includes: Medications discussed during this encounter and other current Medications Discontinued / Stopped on this date Lizbeth Forbes APRN on 03/17/2023 Paxlovid (300/100) 20 x 150 MG & 10 x 100MG Oral Tablet Therapy Pack Provider: Lizbeth Forbes APRN Diagnosis: Last Documented On 2:36PM By Indiana Heath ; [facility], [facility] Medications Administered Includes: Administered Medications from this encounter No Administered Medications Recorded Vital Signs Includes: Vital Signs from this encounter Vital Name 10/15/2023 02:36P Height (in) 65 Weight (lb) 155 Body Mass Index 25.8 Body Surface Area 1.8 Note: [facility] Last Documented: On 10/15/2023 2:37PM ; [facility], [facility] Results Includes: Results discussed during this encounter No Results Recorded For Specified Dates History of Present Illness Includes: History of Present Illness from this encounter HPI Cliff Jensen is a 73 year old [...] the chainsaw. He denies any previous treatment. Social History Description Last Updated No recent change in diet 10/15/2023 Last Documented On 4 11:06PM ; [facility], [facility] Not a current smoker. 10/15/2023 Last Documented On 4 11:06PM ; [facility], [facility] Caffeine use Mountain Dew 07/30/2019 Last Documented On 4 1:42PM ; [facility], [facility] Exercising regularly 07/30/2019 Last Documented On 4 1:42PM ; [facility], [facility] No recent change in diet 07/30/2019 Last Documented On 4 1:42PM ; [facility], [facility] No tobacco use 07/30/2019 Last Documented On 4 1:42PM ; [facility], [facility] Not a current smoker 07/30/2019 Last Documented On 4 1:42PM ; [facility], [facility] Not using alcohol 07/30/2019 Last Documented On 4 1:42PM ; [facility], [facility] Not using drugs 07/30/2019 Last Documented On 4 1:42PM ; [facility], [facility] Smoking status : Former smoker 0 Last Documented On 4 1:42PM ; [facility], [facility] Procedures and Surgical History Includes: Procedures from this encounter Procedures Code Diagnosis Performing Provider Service Location Service Date INJ TENDON SHEATH/LIGAMENT (RIGHT) Trigger finger, right middle finger Jaret Santiago MD [facility] 10/15/2023 Last Documented On 4 12:28PM ; [facility], [facility] Triamcinolone/Kenalog, 10mg per cc [id number] Trigger finger, right middle finger Jaret Santiago MD [facility] 10/15/2023 Last Documented On 4 12:28PM ; [facility], [facility] X-RAY EXAM OF HAND 2 VIEWS (RIGHT) [id number] Trigger finger, right middle finger Jaret Santiago MD [facility] 10/15/2023 Last Documented On 4 12:28PM ; [facility], [facility] Surgical History Last Updated History of appendectomy 07/30/2019 Last Documented On 4 1:42PM ; [facility], [facility] History of back surgery 07/30/2019 Last Documented On 4 1:42PM ; [facility], [facility] History of shoulder arthroplasty right 0 07/30/2019 Last Documented On 4 1:42PM ; [facility], [facility] History of total hip replacement left Last Documented On 4 1:42PM ; [facility] Medical History Includes: Medical History addressed during this encounter Description Last Updated Past medical and surgical history non-co ntributory 07/30/2019 Last Documented On 4 1:42PM ; [facility] A history of cancer skin, on face 2019 Last Documented On 4 1:42PM ; [facility] Arthritic joint problems 07/30/2019 Last Documented On 4 1:42PM ; [facility], [facility] Family History Includes: Family History addressed during this encounter Description Last Updated Family history of cancer 07/30/2019 Last Documented On 4 1:42PM ; [facility], [facility] Family history of diabetes mellitus 07/12 Last Documented On 4 1:42PM ; [facility], [facility] Review of Systems Includes: Review of Systems from this encounter Systemic: Not feeling tired, no recent weight [...] of the A1 dana. Tender RLF MPJ. Mental Status Includes: Mental Status from this encounter Description No anxiety Functional Status Includes: Functional Status from this encounter No Functional Status Recorded Physical Exam Includes: Physical Exam from this encounter Allergies Includes: Active Allergies Substance Type Reaction Onset Date Resolved Date Statu s Morphine Derivatives Allergy 03/19/2019 Active Last Documented On 4 1:42PM ; [facility], [facility] Encounters Encounter Provider Location Date Check-In Time Check-Out Time Diagnosis Physician Specified Jaret Santiago MD [facility] 10/15/19 24 1:39PM 2:31PM Overweight Insurance Includes: Active Insurance Policies Plan Name Member ID Group # Subscriber Relationship Effect addison Dates 1 - [employer] [place] [id number] Cliff Jensen Self 2012 - Unknown 2 - [employer] [id number] Cliff Jensen Self 05/14/2018 - Unknown Clinical Notes Includes: Clinical Notes from this encounter * Progress note Date Encounter Last Documented by 10/15/2023 Physician Specified Ajith marroquin on 10/16/2023; 11:06 PM, Jaret Santiago MD; [facility], [facility] Active Problems & Conditions - [...] Findings - Vitals taken 10/15/2023 02:36 pm [facility] Height 65 in 60 - 80 Weight [...]
--- NOTE | 2024-09-03 23:54 | HMH.EDGENADL ---
Discharge Plan Disposition Patient Disposition: Home, Self-Care Condition: Good Prescriptions Prescriptions: New azithromycin 250 mg tablet See Rx Instructions .ROUTE .COMPLEX Qty: 4 0RF Rx Instructions: For 250 mg dose pack: take 500 mg today (day 1), then 250 mg for 4 days (days 2-5) amoxicillin-pot clavulanate 875-125 mg tablet 1 tab PO BID 7 Days Qty: 14 0RF No Action doxycycline monohydrate 100 MG tablet 100 mg PO Q12 7 Days Qty: 14 0RF guaifenesin 600 MG tablet extended release 12hr 600 mg PO Q12HP PRN (Reason: Cough) Qty: 20 0RF oxycodone 5 mg tablet 5 mg PO Q8H PRN (Reason: pain) Qty: 12 0RF Referrals Follow up/Referrals: Hossein Rodriguez MD [Primary Care Provider] - See instructions Activity Restrictions/Add. Instructions Additional Instructions/Restrictions: Please take antibiotics as prescribed for treatment of pneumonia. Please follow-up with your primary care provider. Please return to the emergency department if you develop any new or worsening symptoms or become concerned for your health. Clinical Impressions Clinical Impression: Pneumonia Qualifiers: Laterality: right Lung location: lower lobe of lung Print Language Print Language: Tristanian Discharge ED Provider: Vishal Santiago General Adult HPI General Chief complaint: Shortness of Breath/Dyspnea Stated complaint: SOB, lung pain, fever Time Seen by Provider: 09/03/24 23:39 Mode of Arrival: Ambulatory Source of Information: Patient Description of Symptoms (Recalled from ER Triage Doc. by RN): PT HERE W/ C/O SOA/FEVER/CHILLS STARTING LAST NIGHT. PT REPORTS TAKING TYLENOL FOR FEVER @ 1800. DENIES PAIN, NO DISTRESS NOTED. History of Present Illness HPI narrative: 74-year-old male with no reported past medical history presents for cough fever and shortness of breath starting yesterday. Reports nasal congestion and rhinorrhea. Reports temperature up to 101 at home. Reports that he feels like he is smothering a little bit. Denies history of smoking, cardiac pathology, any other symptoms. Related Data Previous Rx's ?Medication ?Instructions ?Recorded doxycycline monohydrate 100 mg 100 mg PO Q12 7 days #14 tabs 01/30/21 tablet guaifenesin 600 mg tablet, 600 mg PO Q12HP PRN Cough #20 tabs 01/30/21 extended release 12 hr oxycodone 5 mg tablet 5 mg PO Q8H PRN pain #12 tabs 10/23/23 amoxicillin 875 mg-potassium 1 tab PO BID 7 days #14 tabs 09/04/24 clavulanate 125 mg tablet azithromycin 250 mg tablet See Rx Instructions PO .COMPLEX #4 09/04/24 tabs Allergies Allergy/AdvReac Type Severity Reaction Status Date / Time morphine Allergy Hypotension Verified 09/03/24 23:51 [facility] Disclaimer: The information contained in this section may have been updated after the patient was seen, as this information can be updated by other users. Social History Smoking Status: Never smoker alcohol intake: never current occupational status: other Travel in the last 8 weeks: None Have you lived/traveled outside [place] in past 30 days?: No Contact w/someone who lives/traveled outside US past 30 days?: No Exposure to someone with infectious disease in past 14 days?: No Do you have a fever (greater than 100.4 F or 38 C)?: Yes Have you tested positive for COVID-19: No Exposed to someone with COVID-19 in past 14 days?: No Do you have a sore throat?: No Do you have a cough?: No Do you have any weakness?: No Do you have any diarrhea?: No Are you experiencing any unusual bleeding?: No Do you have any muscle aches/pain?: No Do you have any abdominal pain?: No Are you experiencing loss of taste or smell?: No ROS Obtained: Yes All systems reviewed & no additional complaints except as documented Physical Exam General General appearance: alert and in no apparent distress Head Head exam: atraumatic and normocephalic Eye Eye exam: Present normal appearance, PERRL and EOMI ENT ENT exam: Present normal oropharynx and normal external ear exam Neck Neck exam: Present normal inspection and full ROM Chest Chest inspection: Present normal inspection and symmetric chest wall rise; Absent tenderness Respiratory Respiratory exam: Present other (Crackles in the right base); Absent respiratory distress Cardiovascular Cardiovascular exam: Present regular rate and normal rhythm Abdominal Exam Abdominal exam: Present soft; Absent distention, tenderness or guarding Extremities Exam Extremities exam: Present normal inspection; Absent edema or joint swelling Back Exam Back exam: Present normal inspection; Absent tenderness Neurological Exam Neurological exam: Present alert and oriented X3; Absent motor sensory deficit Psychiatric Psychiatric exam: Present normal affect and normal mood Skin Skin exam: Present warm, dry and normal color Lymphatic Lymphatic Findings: no adenopathy Medical Decision Making Medical Records Medical records reviewed: Yes I reviewed the patient's medical records. Screening: Per USPSTF and CDC recommendations, given the prevalence of disease in our region, it is our hospital?s policy to screen for HIV and viral Hepatitis for all patients aged 18 and over and those with ongoing risk factors. Nicanor Inquiry Pt receiving controlled substance: No Nicanor was queried for this patient: No Vital Signs: 09/03/24 23:46 09/04/24 00:42 Temperature 98.3 F 97.9 F Temperature Source Oral Pulse Rate 81 Pulse Rate [Apical] 78 Respiratory Rate 20 18 Blood Pressure 132/78 Blood Pressure [Right Arm] 125/86 Blood Pressure Mean [Right Arm] 99 02 Sat by Pulse Oximetry 94 L Oxygen Delivery Method Room Air Room Air Lab Data Lab results reviewed: Yes I reviewed the patient's lab results. Orders (Tests/Meds): ED MEDICATIONS Discontinued Medications Generic Name Dose Route Start Last Admin Trade Name Freq PRN Reason Stop Dose Admin Amoxicillin/Clavulanate Potassium 1 each 09/04/24 00:25 09/04/24 00:39 Amoxicillin/Clavulanate Potassium 875/125mg Tablet PO 09/04/24 00:26 1 each ONCE ONE Administration Azithromycin 500 mg 09/04/24 00:25 09/04/24 00:39 Azithromycin 250mg Tablet PO 09/04/24 00:26 500 mg ONCE ONE Administration ORDERS Category Date Time Status CXR 2 view (NOT portable) [XR chest 2V] Stat Exams 09/04/24 00:15 Completed Medical Decision Narrative: 74-year-old male without significant past medical history presents for cough, shortness of breath, nasal congestion, fever since yesterday. History was obtained via interactive discussion with patient, family. On arrival, patient is [afebrile, hemodynamically stable, satting appropriately, alert, oriented x4, GCS 15], moving all extremities spontaneously. Full physical exam performed and significant for crackles in the right lower lobe. Patient satting 95% on room air. No significant respiratory distress Differential includes but is not limited to viral/bacterial pneumonia, URI. 2 view chest x-ray ordered. Imaging independently interpreted by me and significant for right lower lobe opacity consistent with pneumonia. See radiology read for full review of final results. Blood work and admission was considered, but deemed unnecessary due to well-appearing patient, satting appropriately, no significant comorbidities, no significant respiratory distress on exam.. Given patient history, exam and workup, patient's presentation most likely represents right lower lobe pneumonia. Patient was initiated on Augmentin and azithromycin and discharged with prescription for same. He will follow-up with PCP for reassessment or return with worsening symptoms.. Procedures Risk/Benefits of Procedure(s) Were Explained: Yes Critical Care Critical Care Time Critical Care Time: No
--- NOTE | 2024-09-04 00:15 | XR_ITS ---
PROCEDURE INFORMATION: Exam: XR Chest Exam date and time: 09/04/2024 12:08 AM Age: 74 years old Clinical indication: Cough and fever; Additional info: Cough SOA fever TECHNIQUE: Imaging protocol: Radiologic exam of the chest. Views: 2 views. COMPARISON: CT CHEST WO CON 05/13/2021 2:12 PM FINDINGS: Lungs: Patchy airspace consolidation in the right lower lobe. Pleural spaces: Unremarkable. No pleural effusion. No pneumothorax. Heart/Mediastinum: Unremarkable. No cardiomegaly. Bones/joints: Unremarkable. IMPRESSION: Patchy airspace consolidation in the right lower lobe. Suspicious for pneumonia.
[2024-09-04] MEDS: AMOXICILLIN/CLAVULANATE POTASSIUM 875/125MG TABLET 1 EACH PO (00:39)
[2024-09-04] MEDS: AZITHROMYCIN 250MG TABLET 500 MG PO (00:39)
[2024-09-04 00:42] VITALS: BP 132/78; PULSE 81; RESP 18; TEMP 36.6; O2SAT 98
--- NOTE | 2024-09-04 08:58 | PC.NURSE ---
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 I re-transmitted azithromycin and Augmentin to [facility] from [facility].
== END 2024-09-04 00:43 | disposition home or self-care (01) ==
PROVIDERS: Emergency Provider Emergency Medicine; PCP Internal Medicine Adolescent Medicine
DX: J18.9 Pneumonia, unspecified organism (principal); R06.02 Shortness of breath; R50.9 Fever, unspecified
CPT/HCPCS: 71046; 99283